=== PATIENT | male | born 1945 | race Caucasian/White ===

== ENCOUNTER 2022-02-17 14:15 | Outpatient (CLI) | payer MEDICARE, SELFPAY ==
--- NOTE | ~2022-02-17 | CT_ITS ---
EXAMINATION: CT abdomen pelvis wo/w con DATE: 02/17/2022 14:58 INDICATION: Gross hematuria TECHNIQUE: Computed tomography (CT) of the abdomen and pelvis was performed without and subsequently with 130 CC Omnipaque 350 intravenous contrast. Automated exposure control and iterative reconstructi on technique were employed. Exam dose: 2459.51 mGy-cm total exam DLP. COMPARISON: None. FINDINGS: The lung bases are clear. Pacemaker leads are noted in the right atrium, right ventricle an d coronary sinus. Status post sternotomy. No pericardial or pleural effusion. Small sliding hiatal hernia. There are numerous stones in the dependent aspect of the gallbladder. No gallbladder wall thickening or pericholecystic fluid or fat stranding. No bile duct or pancreatic duct dilatation. Centimeter There are at least 2 very small hepatic hypoattenuating lesions, too small to definitively characteri ze, but most likely very small cysts or benign hamartomas. No hepatic, pancreatic or splenic or adren al space-occupying mass lesion is noted otherwise. Focal areas of right renal scarring. No suspicious solid renal space-occupying mass lesion is detecte d. Approximately 1.7 cm exophytic upper pole right renal cyst. 1.3 cm lower pole right renal cyst. Approximately 4.3 x 7 mm nonobstructing upper pole left renal calculus. No ureteral calculus or hydro ureteronephrosis of either kidney. There is prostate enlargement. There is soft tissue thickening at the posterior base of the urinary b ladder, which may be due to prostate enlargement, versus prostate or bladder neoplasm. Consider urolo gical consult cystoscopy. There are numerous diverticula of the sigmoid and descending and to a lesser extent transverse colon; no CT evidence of diverticulitis. Probable appendectomy. There are no bowel obstruction, bowel wall thickening, pneumatosis or intraper itoneal free air is detected. There is atherosclerotic calcification of the abdominal aorta and at the origins of the celiac, super ior mesenteric and renal arteries. No abdominal aortic aneurysm. No intraperitoneal or retroperitonea l or pelvic mass lesion or adenopathy or ascites. Mild bilateral fat-containing inguinal hernias. Left periumbilical 3.4 cm wide fat and fluid containing ventral abdominal wall hernia. Diffuse idiopathic skeletal hyperostosis of the thoracic and upper lumbar spine. 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 Moderately prominent degenerative disc disease and vacuum phenomenon at L4-5 and L5-S1. No suspicious osteolytic or osteoblastic lesions are noted. IMPRESSION: Prostate enlargement; there is some posterior left parasagittal soft tissue thickening a t the base of the urinary bladder which may be due to prostatomegaly, versus prostate or bladder neop lasm. Consider urologic consult and cystoscopy Small sliding hiatal hernia Diverticulosis of the colon; no CT evidence of diverticulitis Cholelithiasis At least 2 very small hepatic probable cysts or benign hematomas Right renal cysts Nonobstructing up to approximately 7 mm upper pole left renal calculus Reviewed, dictated and finalized at [facility]. Reviewed, dictated and finalized at [facility]. FIC SUPERINTENDENT IMPRESSION: Prostate enlargement; there is some posterior left parasagittal so ft tissue thickening at the base of the urinary bladder which may be due to pro statomegaly, versus prostate or bladder neoplasm. Consider urologic consult and cystoscopy Small sliding hiatal hernia Diverticulosis of the colon; no CT evidence of diverticulitis Cholelithiasis At least 2 very small hepatic probable cysts or benign hematomas Right renal cysts Nonobstructing up to approximately 7 mm upper pole left
--- NOTE | ~2022-02-17 | XR_ITS ---
XR abdomen/kub 1V DATE: 02/17/2022 15:08 INDICATION: Gross hematuria TECHNIQUE: 2 supine AP views of the abdomen COMPARISON: 02/17/2022 CT abdomen pelvis FINDINGS: There is radiopaque contrast material within the renal collecting structures, ureters and u rinary bladder. No hydroureteronephrosis is noted. No filling defect of the renal collecting systems, ureters or urinary bladder is noted. The psoas shadows are intact. No visceromegaly is evident. The bowel gas pattern is unremarkable, without evidence of obstruction. Degenerative changes of the thoracic and lumbar spine. IMPRESSION: No significant abnormality Reviewed, dictated and finalized at [facility]. Reviewed, dictated and finalized at [facility]. RCYCLE MECHANIC IMPRESSION: No significant abnormality
[2022-02-17 14:42] LABS: Estimated Glomerular Filt Rate 49
== END 2022-02-17 14:16 | disposition home or self-care (01) ==
PROVIDERS: PCP Internal Medicine; Visit Provider Urology
DX: R31.0 Gross hematuria (principal); N40.0 Benign prostatic hyperplasia without lower urinary tract symptoms; K44.9 Diaphragmatic hernia without obstruction or gangrene; K57.30 Diverticulosis of large intestine without perforation or abscess without bleeding; K80.20 Calculus of gallbladder without cholecystitis without obstruction; N28.1 Cyst of kidney, acquired; N20.0 Calculus of kidney
CPT/HCPCS: 74018; 74178; Q9967

== ENCOUNTER 2023-03-07 14:17 | Outpatient (CLI) | payer MEDICARE, SELFPAY ==
--- NOTE | ~2023-03-07 | XR_ITS ---
EXAMINATION: XR abdomen/kub 1V DATE: 03/07/2023 14:49 INDICATION: Known calcium kidney stones. TECHNIQUE: A supine view of the abdomen on 2 radiographs was obtained. COMPARISON: KUB and CT abdomen pelvis dated 02/17/2022 FINDINGS: 5 mm stone projecting over the middle calyx of the left kidney. No other urolithiasis on either the l eft or right. Unchanged pattern of phleboliths in the pelvis. No dilated loops of gas-filled bowel to suggest obstruction. Lung bases are clear. Heart size is normal with portions of 3 cardiac pacemaker leads project over the inferior heart. 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 Osteophytes at the bilateral sacroiliac joints. Unchanged 1 .8 cm sclerotic lesion projecting over the right iliac wing which given the interval stability favors a benign etiology. IMPRESSION: 1. Unchanged 5 mm left renal stone. 2. 1.8 cm sclerotic lesion at the right iliac wing which given the interval stability favors a benign etiology. Reviewed, dictated and finalized at [facility]. MAN OVER ALL DIES IN PATTERN SHOP IMPRESSION: 1. Unchanged 5 mm left renal stone. 2. 1.8 cm sclerotic lesion at the right iliac wing which given the interval sta bility favors a benign etiology.
== END 2023-03-07 14:18 | disposition home or self-care (01) ==
PROVIDERS: PCP Internal Medicine; Visit Provider Urology
DX: N20.0 Calculus of kidney (principal)
CPT/HCPCS: 74018

== ENCOUNTER 2024-03-02 14:09 | Outpatient (CLI) | payer MEDICARE, SELFPAY ==
--- NOTE | ~2024-03-02 | XR_ITS ---
XR abdomen/kub 1V Ordering provider: Salty Hinds MD History: . calcium of kidney stone . Comparison: March 07, 2023 FINDINGS: BOWEL: Nonobstructive bowel gas pattern. ORGANOMEGALY: None. SIGNIFICANT PATHOLOGIC CALCIFICATIONS: Left kidney stone. OTHER: No free air is seen under the diaphr agm. Sclerotic area is seen in the left sacroiliac joint area which may be due to sacroiliitis. Furth er evaluation advised. Similar appearances seen on the right but to lesser degree. Degenerative lamar es of the spine. Bilateral hip joint osteoarthritic changes. IMPRESSION: NO ACUTE ABDOMINAL FINDINGS. Left kidney stone. Bilateral sacroiliitis. Reviewed, dictated and finalized at location [facility]. ERCIAL HVAC TECHNICIAN
== END 2024-03-02 14:10 | disposition home or self-care (01) ==
LOC: ANHIMG 14:17
PROVIDERS: PCP Internal Medicine; Visit Provider Urology
DX: N20.0 Calculus of kidney (principal); M46.1 Sacroiliitis, not elsewhere classified
CPT/HCPCS: 74018